=== PATIENT | female | born 1985 | race Caucasian/White ===

== ENCOUNTER 2025-01-27 00:31 | Emergency (ER) | payer OTHER, SELFPAY ==
[2025-01-27 00:35] VITALS: BP 122/98; BP 135/91; PULSE 102; PULSE 114; RESP 18; TEMP 36.6; O2SAT 94; O2SAT 96; BMI 40.5
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
--- OUTSIDE RECORDS SUMMARY | 2025-01-27 02:02 | XMS_ITS | Clinical Summary ---
Author Organization [facility] it Address [address] [place] [address] Care Team Providers Care [employer] Apprentice Name Role Phone Mily Henry MD Primary Care Provider Unavailabl e Medical History Medical History Date Comments Scoliosis (and kyphoscoliosi s), idiopathic 03/13/2006 DX:Scoliosis (and kyphoscoli osis), idiopathic Abnormal glandular Papanicol aou smear of cervix 03/13/2006 DX:Abnormal glandular Papani colaou smear of cervix Abnormal maternal glucose to lerance, complicating , childbirth, or the puerperium, unspecified as to episode of care 11/03/2005 DX:Abnormal maternal glucose tolerance, complicating , childbirth, or the puerperium, unspecified as to episode of care Family History Medical History Relation Name Comments Other: pneumonia Father Hypertension Maternal Grandfather Diabetes Maternal Grandmother ,CAD,ao rtic stenosis Diabetes Mother Relation Name Status Comments Father Maternal Grandfather Maternal Grandmother Mother Social History Tobacco Use Types Packs/Day Years Used Date Smoking Tobacco: Former Alcohol Use Standard Drinks/Week Comments Yes 0 (1 standard drink = 0.6 oz pur e alcohol) Comments Unknown Sex and Gender Information Value Date Recorded Sex Assigned at Not on file Legal Sex Female 11:24 AM EST Gender Identity Not on file Sexual Orientation Not on file Plan of Treatment Health Maintenance Due Date Last Done Comments Hepatitis B Vaccines (1 of 3 - 19+ 3-dose series) 2004 DTaP,Tdap,and Td Vaccines (2 - Td or Tdap) 07/06/2005 07/07/1995 Cervical Cancer Screening: P ap Smear 2006 HPV Vaccines (1 - 3-dose SCD M series) 2012 Depression Screening 02/06/2024 COVID-19 Vaccine (2024-2 6 season) 2024 Influenza Vaccine (#1) 2024 12/02/2008 RSV Immunization Adult Patie nts (1 - 1-dose 75+ series) 2060 HIB Vaccines Aged Out No longer eligi ble based on patient's age to complete this topic Hepatitis A Vaccines Aged Out No long er eligible based on patient's age to complete this topic IPV Vaccines Aged Out No longer eligi ble based on patient's age to complete this topic MMR Vaccines Aged Out No longer eligi ble based on patient's age to complete this topic Meningococcal ACWY Vaccine Aged Out N o longer eligible based on patient's age to complete this topic Meningococcal B Vaccine Aged Out No l onger eligible based on patient's age to complete this topic Pneumococcal Vaccine: Pediat rics (0 to 5 Years) and At-Risk Patients (6 to 49 Years) Aged Out No longer eligi ble based on patient's age to complete this topic RSV Immunization Patients Un kellen 20 months Aged Out No longer eligible b ased on patient's age to complete this topic Varicella Vaccines Aged Out No longer eligible based on patient's age to complete this topic Care Teams [employer] Gr[employer] Apprentice Relationship Specialty Start Date End Date Mily Henry MD Need Address Update PCP - General 04/01/12
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
--- NOTE | 2025-01-27 02:51 | PC.NURSE ---
Lidocaine deed not available globally tonight, provider aware, awaiting new orders.
--- NOTE | 2025-01-27 03:13 | PC.NURSE ---
Lidocaine e ordered for 2 vials of 10 mL each. order for 20 mL was not given per provider.
[2025-01-27] MEDS: Lidocaine HCl 1%/Epi 1:100,000 10 ML VIAL 20 ML INFILTRATI (03:58)
[2025-01-27 04:17] VITALS: BP 134/90; PULSE 99; RESP 18; TEMP 36.6; O2SAT 96
== END 2025-01-27 04:18 | disposition home or self-care (01) ==
PROVIDERS: Emergency Provider Emergency Medicine
DX: S01.112A Laceration without foreign body of left eyelid and periocular area, initial encounter (principal); H57.12 Ocular pain, left eye; Y04.0XXA Assault by unarmed brawl or fight, initial encounter; Y93.89 Activity, other specified; Y92.488 Other paved roadways as the place of occurrence of the external cause; Y99.8 Other external cause status
CPT/HCPCS: 12013; 99284; J2004